=== PATIENT | female | born 1950 | race Two or more races ===

== ENCOUNTER 2019-07-07 22:20 | Emergency (ER) | payer OTHER ==
[~2019-07-07] VITALS: Ht 152.4 cm; Wt 90.7 kg
[2019-07-08] MEDS ORDERED: NAPROXEN500 MG PO (00:43)
[2019-07-08] MEDS ORDERED: PERCOCET 5-3251 EACH PO (00:43)
== END 2019-07-08 01:52 | disposition home or self-care (01) ==
LOC: ER 22:20
DX: S52.592A Other fractures of lower end of left radius, initial encounter for closed fracture (principal); S52.692A Other fracture of lower end of left ulna, initial encounter for closed fracture; S52.091A Other fracture of upper end of right ulna, initial encounter for closed fracture; W01.198A Fall on same level from slipping, tripping and stumbling with subsequent striking against other object, initial encounter; Y93.89 Activity, other specified; Y92.511 Restaurant or cafe as the place of occurrence of the external cause; Y99.8 Other external cause status

== ENCOUNTER 2019-07-13 07:14 | Outpatient (CLI) | payer OTHER ==
[~2019-07-13 07:14] MED LIST: NAPROXEN500 MG PO; PERCOCET 5-3251 EACH PO
[2019-07-13] MEDS ORDERED: JANUMET 50-1,01 EACH PO (11:05)
[2019-07-13] MEDS ORDERED: ATORVASTATIN CA10 MG PO (11:06)
[2019-07-13] MEDS ORDERED: LISINOPRIL10 MG PO (11:06)
[2019-07-13] MEDS ORDERED: ACTOS30 MG PO (11:07)
== END 2019-07-13 07:20 | disposition home or self-care (01) ==
LOC: RAD 07:14 → LAB 07:14
DX: E11.9 Type 2 diabetes mellitus without complications (principal); E78.00 Pure hypercholesterolemia, unspecified; E78.3 Hyperchylomicronemia; D66 Hereditary factor VIII deficiency; D65 Disseminated intravascular coagulation [defibrination syndrome]; N39.0 Urinary tract infection, site not specified; Z01.810 Encounter for preprocedural cardiovascular examination; I10 Essential (primary) hypertension

== ENCOUNTER 2019-07-17 08:35 | Day surgery (SDC) | payer OTHER ==
[~2019-07-17 08:35] MED LIST changes: +ACTOS30 MG PO; +ATORVASTATIN CA10 MG PO; +JANUMET 50-1,01 EACH PO; +LISINOPRIL10 MG PO
== END 2019-07-18 07:30 | disposition home or self-care (01) ==
LOC: CIR.AMB 08:35
DX: S52.572A Other intraarticular fracture of lower end of left radius, initial encounter for closed fracture (principal); S52.021A Displaced fracture of olecranon process without intraarticular extension of right ulna, initial encounter for closed fracture
CPT/HCPCS: 25609; 24685; 25118; 25280; C1776

== ENCOUNTER 2019-08-01 08:15 | Outpatient (CLI) | payer OTHER | END 2019-08-01 08:17 | disposition home or self-care (01) | LOC: RAD 08:15 | DX: M25.532 Pain in left wrist (principal); M25.521 Pain in right elbow ==